=== PATIENT | female | born 1945 | race Caucasian/White ===

== ENCOUNTER 2017-10-26 03:02 | Inpatient (IN) | payer OTHER ==
[~2017-10-26] VITALS: Ht 161.3 cm; Wt 100.7 kg
[~2017-10-26 03:02] MED LIST: AMLODIPINE BES2.5 MG PO; AMLODIPINE BESY10 M1 PO; ATORVASTATIN CA20 M1 PO; ATORVASTATIN CA20 MG PO; BIOTIN1 MG PO; BUFFERIN LOW DO81 MG PO; COQ-10100 MG PO; LISINOPRIL40 M1 PO; LISINOPRIL40 MG PO; METFORMIN HCL500 M3 PO; METFORMIN HCL500 MG PO; METOPROLOL SUC100 M1 PO; TOPROL XL100 M1 PO; VITAMIN D2000 UNI1 PO
[2017-10-26] MEDS ORDERED: VITAMIN B122500 MC1 PO (07:27)
--- NOTE | 2017-10-26 09:41 | Operative Report ---
Operative/Inv Procedure Report Surgery Date: 10/26/17 Name of Procedure: Right total knee arthroplasty Pre-Operative Diagnosis: Primary arthritis right knee Post-Operative Diagnosis: Same Estimated Blood Loss: scant Surgeon/Stunt Woman: Hailey HOANG,Neel TORRES Anesthesia: laryngeal mask airway, block (SPINAL) IV Fluids: See anesthesia record Implants: Nathalie triathlon posterior stabilized knee size 4 femur, size 4 tibia, 11 mm polyethylene insert and a 29 patellar button Drains: None Specimens: Bone to pathology Tourniquet: 55 minutes Complications: None Condition: Stable Operative Indication: Patient 72-year-old female with osteoarthritis the right knee was failed conservative treatment is indicated for right total knee arthroscopy. Risks and benefits the procedure were discussed the patient in detail. Skills that hand is necessary provided by physician salon shampoo assistant Reagan jaimes with limb positioning retraction and component assembly throughout the case. Operative/Procedure Note Note: Once informed consent was obtained and the correct limb was identified the patient brought the operating placed on table supine position. After administration of spinal anesthesia patient had Sawant catheter placed and a thigh tourniquet placed in the right lower examinee was prepped and draped in usual sterile fashion. To begin the procedure standard midline incision made for right total knee arthroplasty. Sharp dissection was carried out through skin and subcu tissue. A medial parapatellar arthrotomy was performed and the patella was everted. Fat pads removed from patellar tendon. Patellar thickness was measured to be 22 mm of plan resection of 8 mm was performed with patellar jig. The patella was sized to be asymmetric 29 patellar button and the jig for the 29 patellar button was placed and the drill holes were made. At this point the patella was retracted laterally and the knee was placed in flexion. Z retractors were placed to protect the collateral ligaments and the intramedullary canal the femur was opened using a step drill. The intramedullary distal femoral cutting guide was placed down the canal. Plan resection of 6 valgus cut with 10 mm resection distally was set and performed without complication. Bone was passed off to pathology. Once this was done the femur sized to be a size 4 femur with the sizing guide. A size 4 4-in-1 cutting guide was placed in the distal femur and anterior posterior and chamfer cuts were made without complication. Bone was passed off. Next the size 4 box cut guide was placed on the femur and the box cut was made for the posterior stabilized knee. At this point the medial and lateral menisci were removed sharply with the Bovie cautery and a #10 blade. At this point we then were ready to position the tibia for preparation we noticed a small nondisplaced fracture of the medial femoral condyle of the cancellus portion of the bone. A 4.0 partially-threaded cannulated screw was then placed to fix the fracture. The screw head was countersunk to avoid any interference of the femoral implant. This allowed for excellent fixation of this small cancellus bone fracture. We then moved onto the tibial portion of the case. The intramedullary canal was entered with a step drill and the tibial cutting guide was placed down the intramedullary canal of the tibia. Plan resection of 4 mm I was placed off of the medial side of the knee. The tibial cutting guide was pinned in place and the cut was made without complication. Bone was passed off as specimen. The tibia was then sized to be a size 4 tibia. Trial reduction was done with a 4 tibia 4 femur and a 9 mm polyethylene insert. The knee had full extension and flexion of 120. The knee was stable to varus and valgus stress at 0 and 60. The patella tracked nicely and the rotation of the component was marked after taking the knee through range of motion. The instruments and components removed and the tibial tray was pinned in place. The keel cut was made. At this point the knee was pulse lavaged and the cement was mixed on the back table. The components were then cemented in place with the tibial component cemented first followed by the femoral component and the patellar button. All excess cement was removed with curettes. A 9 mm polyethylene trial was placed into the knee and the knee is placed in full extension while the cement hardened. At this point we noticed slight hyperextension of the knee. Once the cement hardened we did a trial again and decided to go to an 11 mm polyethylene insert. We again had full extension and no loss of flexion with 120 of flexion. The knee was stable to varus and valgus stress at 0 and 60. The trial component was removed and a 11 mm polyethylene insert was opened and locked into the tibial tray without problems. The knee was pulse lavaged and the tourniquet was released. Bleeding was stopped with electrocautery. The arthrotomy was then closed with # 1 Vicryl interrupted sutures and the subcutaneous tissues closed with #1 Vicryl and 2-0 Vicryl interrupted sutures and the skin was closed juvenal. A sterile dressing was applied the patient was awakened taken recovery in stable condition.
[2017-10-26 11:00] VITALS: BP 122/60
--- NOTE | 2017-10-26 11:19 | Cons- Medical ---
Guy Mace 10/26/17 1118: General Information and HPI Consulting Request Date of Consult: 10/26/17 Requested By: Hailey HOANG,Neel Lopez History of Present Illness: This is a 72-year-old female with past medical history of hypertension, hyperlipidemia and diabetes mellitus on amlodipine, aspirin, statin, lisinopril and metformin along with metoprolol was admitted today on 10/26/2017 for right total knee arthroplasty for primary arthritis of the right knee.She is now status post right total knee arthroplasty. We have been consulted for medical management of her hypertension, hyperlipidemia and diabetes mellitus.she doesnot offer any medical complaints at this point and is doing good. Allergies/Medications Allergies: Coded Allergies: Sulfa (Sulfonamide Antibiotics) (Intermediate, RASH 10/25/17) Home Med List: Amlodipine Besylate 10 MG TABLET 1 TAB PO DAILY HTN (Reported) Atorvastatin Calcium 20 MG TABLET 1 TAB PO DAILY CHOLESTEROL (Reported) Biotin 1 MG CAPSULE SUPPLEMENT (Reported) Cholecalciferol (Vitamin D3) (Vitamin D) 2,000 UNIT TABLET 1 TAB PO DAILY SUPPLEMENT (Reported) Cyanocobalamin (Vitamin B-12) (Vitamin B12) (Unknown Strength) TABLET (Unknown Dose) ONCE VITAMIN SUPPORT (Reported) Lisinopril 40 MG TABLET 1 TAB PO DAILY HTN (Reported) Metformin HCl 500 MG TABLET 1 TAB PO BID DM (Reported) Metoprolol Succ XL (Toprol XL) 100 MG TAB.ER.24H 1 TAB PO DAILY HTN (Reported ) Ubidecarenone (Coq-10) 100 MG CAPSULE SUPPLEMENT (Reported) Review of Systems Review of Systems Constitutional: Reports: see HPI. Past History Medical History Neurological: NONE EENT: NONE Cardiovascular: hypertension, hyperlipidemia Respiratory: NONE Gastrointestinal: GERD Hepatic: NONE Renal: NONE Musculoskeletal: NONE Psychiatric: NONE Endocrine: diabetes Blood Disorders: NONE Cancer(s): UTERINE CA TELECOMMUNICATOR/Reproductive: NONE Surgical History Surgical History: hysterectomy Family History Relations & Conditions If Any: MOTHER FH: bladder cancer aunt Colorectal cancer uncle Colorectal cancer Psychosocial History Who Do You Live With? spouse Services at Home: None Primary Language: Mongolian Smoking Status: Unknown If Ever Smoked Functional Ability ADLs Independent: dressing, eating, toileting, bathing. Ambulation: independent IADLs Independent: shopping, housework, finances, food prep, telephone, transportation , medication admin. Exam & Diagnostic Data Last 24 Hrs of Vital Signs/I&O Vital Signs Date Time Temp Pulse Resp B/P B/P Pulse O2 O2 Flow FiO2 Mean Ox Delivery Rate 10/26 1100 97.9 66 20 122/60 97 Room Air Physical Exam General Appearance: well developed/nourished, no apparent distress, alert, awake Head: atraumatic, normal appearance Neck: normal inspection, supple Respiratory: normal breath sounds, chest non-tender Cardiovascular: regular rate/rhythm Gastrointestinal: normal bowel sounds, soft, non-tender Last 24 Hrs of Labs/Richi: .. Assessment/Plan Assessment/Plan This is a 72-year-old female with past medical history of hypertension, hyperlipidemia and diabetes mellitus on amlodipine, aspirin, statin, lisinopril and metformin along with metoprolol was admitted today on 10/26/2017 for right total knee arthroplasty for primary arthritis of the right knee.She is now status post right total knee arthroplasty. We have been consulted for medical management of her hypertension, hyperlipidemia and diabetes mellitus. He is afebrile with temperature 97.9, pulse of 66, respirations 20, blood pressure 122/60, she saturating 97% on room air. No labs were done today morning. [facility] labs today as baseline creatinine 1.2 Last echo was in 2014 with a normal EF of 60% with impaired left ventricular relaxation, mild septal hypertrophy, moderate left atrial enlargement, trace MR and mild TR. She was admitted to orthopedic service medical team has been consulted for management of medical issues namely hypertension, hyperlipidemia, diabetes mellitus. Problem #1 hypertension. Patient's blood pressure is stable currently. Continue amlodipine 10 mg daily. As the blood pressure is within normal range, I would start amlodipine 10 mg first, check the blood pressure and then gradually restart lisinopril 40 mg daily. Subsequently can restart metoprolol 100 mg daily. Continue to monitor blood pressure. 2. Diabetes mellitus. Continue to monitor fingersticks. Hold metformin while inpatient. NovoLog sliding scale. 3. Hyperlipidemia. Continue atorvastatin 20 mg daily. AC per ortho Thank you for consulting the medical team, please contact us if any questions and we will be following along with you. Copies To: Hailey HOANG,Neel Lopez Consult Acknowledgment - Thank you for your consult request. Himanshu Schmidt 10/26/17 1437: Assessment/Plan Consult Acknowledgment - Thank you for your consult request. Attending MD Review Statement Attending Statement Attending MD Statement: examined this patient, discuss w/resident/PA/LISW, agreed w/resident/PA/LISW, reviewed EMR data (avail) Attending Assessment/Plan: HTN- cont on current home meds - on norvasc, metoprolol and lisinopril. will recheck BEP. HLD- cont on lipitor DVT proh- on eliquis per ortho d/w pt the care plan.
[2017-10-26 13:11] VITALS: BP 134/68
--- NOTE | 2017-10-26 13:15 | PN- Orthopedic ---
Subjective Subjective: Complaints after surgery, she is recovering well, no significant pain, no fever no flulike illness, recovering from anesthesia without complications Objective Vital Signs and I&Os Vital Signs Date Time Temp Pulse Resp B/P B/P Pulse O2 O2 Flow FiO2 Mean Ox Delivery Rate 10/26 1100 97.9 66 20 122/60 97 Room Air Intake & Output 10/26 1600 10/26 0800 10/26 0000 10/25 1600 10/25 0800 10/25 0000 Intake Total Output Total Balance Patient 222 lb Weight Weight Bed scale Measurement Method Physical Exam: Well-developed well-nourished no apparent distress. HEENT: Atraumatic, extraocular motion intact Neck: Supple, no lymphadenopathy Respiratory: No respiratory distress Extremities: No edema RIGHT lower extremity dressing in place, Dressing is clean dry and intact Compression wrap in place. ALPS in place Neurovascularly intact distally Bilateral calves are supple, nontender. Neuro: Alert and oriented x3 Psych: Mood affect normal, normal memory normal judgment. Skin: Warm and dry, no rash on exposed skin Results Last 48 Hours of Labs: Laboratory Tests 10/26 1310 Chemistry Sodium Pending Potassium Pending Chloride Pending Carbon Dioxide Pending Anion Gap Pending BUN Pending Creatinine Pending BUN/Creatinine Ratio Pending Hematology CBC w Diff Pending WBC Pending RBC Pending Hgb Pending Hct Pending MCV Pending MCH Pending MCHC Pending RDW Pending Plt Count Pending MPV Pending Assessment/Plan Assessment/Plan Postop day #0 status post right total knee arthroplasty. Perioperative antibiotics. Pain medication as needed. Out of bed Physical therapy, weightbearing as tolerated Continue Sawant catheter until tomorrow IV fluids Regular diet Appreciate medicine consult Follow up this afternoon and tomorrow morning labs Eliquis for DVT prophylaxis starting tomorrow am ALPS for DVT prophylaxis Regular home meds Dressing change postop day 2 Core Measures Venous Thromboembolism VTE Risk Factors Age>40 No Mechanical VTE Prophylaxis d/t N/A MechProphylax Ordered No VTE Pharm Prophylaxis d/t NA PharmProphylax ordered
[2017-10-26] MEDS ORDERED: PERCOCET 5-3251 EACH PO (13:37)
[2017-10-26] MEDS ORDERED: ELIQUIS2.5 M1 PO (13:37)
[2017-10-26] MEDS ORDERED: SENNA PLUS TAB1 EACH PO (13:37)
--- NOTE | 2017-10-26 13:37 | Surgical Discharge Summary ---
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 Home Who Do You Live With? Spouse Services at Home: None What is Your Primary Language? Kyrgyz Review of Systems: yes Hospital Course Course Attending Physician: Neel Gardienr MD Primary Care Physician: Jl Peng MD Hospital Course: Patient underwent a right total knee arthroplasty by Dr. gardiner which went without complications. Postoperatively the patient did well. Pain was well controlled, vital signs are stable, limited stable, she voided spontaneously, her diet was advanced, she received physical therapy, perioperative antibiotics and DVT prophylaxis with Eliquis. She was followed by our medical staff as well. When she was medically stable and cleared physical therapy she was discharged home in stable condition having tolerated procedure well without complications. Complications: None Allergies: Coded Allergies: Sulfa (Sulfonamide Antibiotics) (Intermediate, RASH 10/25/17) Disposition Summary Disposition Principal Diagnosis: Right knee osteoarthritis status post right total knee arthroplasty Additional Diagnosis: Same Discharge Disposition: home health services Discharge Instructions General Discharge Information Code Status: Full Code Patient's Diet: Diabetic diet Patient's Activity: Per total knee arthroplasty protocol. Weightbearing as Tolerated, range of motion as tolerated Follow-Up Instructions/Appts: Continue Eliquis for 1 month. Pain medication as needed. Pioneer out in 2 weeks by visiting nurse or with at follow-up appointment Medications at Discharge Discharge Medications: Continue taking these medications: Atorvastatin Calcium (Atorvastatin Calcium) 20 MG TABLET 1 Tablet ORAL DAILY Comments: Last Taken: 10/27/17 Time: 1600PM Amlodipine Besylate (Amlodipine Besylate) 10 MG TABLET 1 Tablet ORAL DAILY Comments: Last Taken: 10/28/17 Time: 1000AM Lisinopril (Lisinopril) 40 MG TABLET 1 Tablet ORAL DAILY Comments: Last Taken: 10/28/17 Time: 1000AM Metformin HCl (Metformin HCl) 500 MG TABLET 1 Tablet ORAL TWICE DAILY Comments: NOT GIVEN IN HOSPITAL Metoprolol Succ XL (Toprol XL) 100 MG TAB.ER.24H 1 Tablet ORAL DAILY Comments: Last Taken: 10/28/17 Time: 1000AM Cholecalciferol (Vitamin D3) (Vitamin D) 2,000 UNIT TABLET 1 Tablet ORAL DAILY Comments: NOT GIVEN IN HOSPITAL Ubidecarenone (Coq-10) 100 MG CAPSULE 1 Tablet ORAL DAILY Comments: NOT GIVEN IN HOSPITAL Biotin (Biotin) 1 MG CAPSULE 1 Tablet ORAL DAILY Comments: NOT GIVEN IN HOSPITAL Cyanocobalamin (Vitamin B-12) (Vitamin B12) (Unknown Strength) TABLET 1 Tablet ORAL GIVE ONCE Comments: NOT GIVEN IN HOSPITAL Start taking the following new medications: Apixaban (Eliquis) 2.5 MG TABLET 2.5 Milligram ORAL TWICE DAILY as needed for blood clot risk reduction Qty = 60 No Refills Comments: Last Taken: 10/28/17 Time: 1000AM Docusate Sodium (Docusate Sodium) 100 MG CAPSULE 100 Milligram ORAL TWICE DAILY as needed for CONSTIPATION Qty = 60 No Refills Instructions: stool softener. hold for loose bms. Comments: Last Taken: 10/28/17 Time: 1000AM Oxycodone HCl/Acetaminophen (Percocet 5-325 MG Tablet) 5 MG-325 MG TABLET 1-2 Tablet ORAL EVERY 4-6 HOURS NEEDED as needed for pain control Qty = 36 No Refills Instructions: tylenol alternatively. do not combine. Comments: PERCOCET 1 TAB GIVEN 10/28/17 @1000AM Polyethylene Glycol 3350 (Miralax) 17 GRAM POWD.PACK 1 Packet ORAL DAILY as needed for CONSTIPATION Qty = 2 No Refills Instructions: dissolve in water Comments: Last Taken: 10/28/17 Time: 1000AM
--- NOTE | 2017-10-26 13:41 | Patient Discharge Instructions ---
Discharge Instructions General Discharge Information You were seen/treated for: Right knee osteoarthritis You had these procedures: Right total knee arthroplasty Watch for these problems: Fever greater than 101, flulike illness, redness, drainage from the wound, severe pain and inability to bend knee, inability to weight-bear No bath, but you may shower: Yes Other wound care: Dry dressing or Band-Aid daily. Do not submerge the wound. Special Instructions: Range of motion as tolerated, activity as tolerated, activity per physical therapy Take pain medication as needed. Take Eliquis for DVT prophylaxis blood thinner (do not take any additional Motrin and Advil Aleve or aspirin with this medication) Diet Recommended Diet: Diabetic Activity Full Activity/No Limits: No Activity Self Limited: Yes Acute Coronary Syndrome Inclusion Criteria At DC or during hospital stay patient has or had the following: ACS DIAGNOSIS No Discharge Core Measures Meds if any: Prescribed or Continued at Discharge Meds if any: NOT Prescribed or Continued at Discharge Congestive Heart Failure Inclusion Criteria At DC or during hospital stay patient has or had the following: CHF DIAGNOSIS No Discharge Core Measures Meds if any: Prescribed or Continued at Discharge Meds if any: NOT Prescribed or Continued at Discharge Cerebrovascular accident Inclusion Criteria At DC or during hospital stay patient has or had the following: CVA/TIA Diagnosis No Discharge Core Measures Meds if any: Prescribed or Continued at Discharge Meds if any: NOT Prescribed or Continued at Discharge Venous thromboembolism Inclusion Criteria VTE Diagnosis No VTE Type NONE VTE Confirmed by (Test) NONE Discharge Core Measures - Per Current guidelines, there needs to be overlap - treatment for the first 5 days of Warfarin therapy. - If discharged on Warfarin prior to 5 days of - overlap therapy, the patient will need to be - assessed for post discharge needs including - *Post discharge parental anticoagulation - *Warfarin and/or parental anticoagulation education - *Follow up date to check INR post discharge At least 5 days overlap therapy as Inpatient No Meds if any: Prescribed or Continued at Discharge Note: Overlap Therapy is Warfarin and Anticoagulant Meds if any: NOT Prescribed or Continued at Discharge
[2017-10-26 14:31] LABS: ABSOLUTE BASOPHIL COUNT 0 /CUMM (0.0-0.2); ABSOLUTE EOSINOPHIL COUNT 0 /CUMM (0.0-0.7); ABSOLUTE GRANULOCYTE CT 10.2 /CUMM (1.4-6.5); ABSOLUTE LYMPH COUNT 0.7 /CUMM (1.2-3.4); ABSOLUTE MONOCYTE COUNT 0.2 /CUMM (0.10-0.60); BASOPHIL % 0 % (0.0-2.0); EOSINOPHIL % 0.1 % (0-5); HEMATOCRIT 36.5 % (37-47); MEAN CORPUSCULAR HGB 29.6 PG (27.0-31.0); MEAN CORPUSCULAR HGB CONC 33.8 G/DL (33.0-37.0); MEAN CORPUSCULAR VOLUME 87.6 FL (81.0-99.0); PLATELET COUNT 221 /CUMM (130-400); RBC DISTRIBUTION WIDTH 13.2 % (11.5-14.5); RED BLOOD CELL CT 4.16 /CUMM (4.20-5.40); WHITE BLOOD CELL COUNT 11.1 /CUMM (4.8-10.8)
[2017-10-26 14:51] VITALS: BP 130/66
[2017-10-26 14:59] LABS: GRANULOCYTE % 91.8 % (42.2-75.2)
[2017-10-26 16:52] VITALS: BP 124/72
[2017-10-26 22:11] VITALS: BP 142/78
[2017-10-27 01:12] VITALS: BP 146/76
[2017-10-27 05:09] VITALS: BP 141/66
[2017-10-27 07:34] LABS: ABSOLUTE BASOPHIL COUNT 0 /CUMM (0.0-0.2); ABSOLUTE EOSINOPHIL COUNT 0 /CUMM (0.0-0.7); ABSOLUTE GRANULOCYTE CT 12.2 /CUMM (1.4-6.5); ABSOLUTE LYMPH COUNT 0.6 /CUMM (1.2-3.4); ABSOLUTE MONOCYTE COUNT 1.2 /CUMM (0.10-0.60); BASOPHIL % 0 % (0.0-2.0); EOSINOPHIL % 0 % (0-5); HEMATOCRIT 32.4 % (37-47); MEAN CORPUSCULAR HGB 30.2 PG (27.0-31.0); MEAN CORPUSCULAR HGB CONC 34.4 G/DL (33.0-37.0); MEAN CORPUSCULAR VOLUME 87.8 FL (81.0-99.0); MEAN PLATELET VOLUME 7.9 FL (7.4-10.4); PLATELET COUNT 211 /CUMM (130-400); RBC DISTRIBUTION WIDTH 12.7 % (11.5-14.5); RED BLOOD CELL CT 3.69 /CUMM (4.20-5.40)
--- NOTE | 2017-10-27 08:07 | PN- Medicine Consult ---
See Addendum Guy Mace 10/27/17 0806: Assessment/PlanMedical Consult Assessment/Plan Assessment: BP sysotlic in 140's, a little anxious and in pain this morning. low grade 99.6 temp, creatinine back to normal, eating well and tolerating food fine after the procedure. FS > 200 noted no new complaints Plan: This is a 72-year-old female with past medical history of hypertension, hyperlipidemia and diabetes mellitus on amlodipine, aspirin, statin, lisinopril and metformin along with metoprolol was admitted today on 10/26/2017 for right total knee arthroplasty for primary arthritis of the right knee.She is now status post right total knee arthroplasty. We have been consulted for medical management of her hypertension, hyperlipidemia and diabetes mellitus. 1 hypertension. Patient's blood pressure is close to 140 systolic Continue all home BP medications today. BP should be better after she gets all her BP meds today ct to monitor. 2. Diabetes mellitus. Continue to monitor fingersticks. FS noted to be >200, please add bedtime s/s as well. ct to Hold metformin while inpatient, resume on d/c. NovoLog sliding scale - increase to medium dose 3. Hyperlipidemia. Continue atorvastatin 20 mg daily. 4. Mild ESDRAS -prerenal now resolved. -generous hydratino by mouth 5. Pain control -she looks very anxious and says thathe knee pain is 8/10 this morning and after percocet is still 5/10 -She does look in pain -Suggest optimizing pain regimen, while coverign with laxatives in constipated for fe intial days then can taper down the regimen. AC per ortho Thank you for consulting the medical team. Problem List: 1. Total knee replacement status Subjective Subjective: i have seen and examined the patient today morning, she is little anxious this morning and says that she thought her pain would go away, but its been botherign her all night and was 8/10 this morning. Review of Systems Constitutional: Reports: see HPI. Objective Last 24 Hrs of Vital Signs/I&O Vital Signs Date Time Temp Pulse Resp B/P B/P Pulse O2 O2 Flow FiO2 Mean Ox Delivery Rate 10/27 0509 99.6 76 20 141/66 90 Room Air 10/27 0130 93.2 10/27 0112 98.7 80 20 146/76 92 Room Air 10/26 2211 98.2 77 20 142/78 92 Room Air 10/26 1652 97.5 67 18 124/72 92 Room Air 10/26 1451 97.3 67 20 130/66 94 Room Air 10/26 1311 97.5 68 20 134/68 94 Room Air 10/26 1100 97.9 66 20 122/60 97 Room Air Intake & Output 10/27 1600 10/27 0800 10/27 0000 Intake Total 760 Output Total 1500 Balance -740 Intake, IV 460 Intake, Oral 300 Number 0 Bowel Movements Output, Urine 1500 Physical Exam General Appearance: no apparent distress, alert, awake Cardiovascular: regular rate/rhythm Respiratory: normal breath sounds Abdomen: normal bowel sounds, soft, non-tender Extremities: normal inspection Current Medications: Current Medications Sig/Vaibhav Start time Last Medication Dose Route Stop Time Status Admin Acetaminophen 0 .STK-MED ONE 10/26 1018 DC IV Acetaminophen 650 MG ONCE 10/26 0000 DC PO 10/26 2359 Amlodipine Besylate 10 MG DAILY 10/26 0938 AC PO Apixaban 2.5 MG BID 10/27 09 AC PO Atorvastatin Calcium 20 MG 1700 10/26 1700 AC 10/26 PO 1658 Atorvastatin Calcium 20 MG DAILY 10/26 0938 CAN PO Bupivacaine Liposome 266 MG .STK-MED ONE 10/26 0834 DC INF 10/26 0835 Celecoxib 400 MG DAILY 10/27 0900 AC PO Dexamethasone 10 MG ONCE 10/26 0000 DC IV 10/26 2359 Docusate Sodium 100 MG BID 10/27 0900 AC PO Docusate Sodium 100 MG BID PRN 10/26 0945 AC PO 10/27 0859 Gabapentin 300 MG ONCE 10/26 0000 DC PO 10/26 2359 Insulin Aspart 0 TIDAC 10/26 1700 AC 10/26 SC 1658 Lisinopril 40 MG DAILY 10/27 0900 AC PO Metformin HCl 500 MG BID 10/26 2100 CAN PO Metoprolol Succinate 100 MG DAILY 10/27 0900 AC PO Morphine Sulfate 2 MG Q3P PRN 10/26 1100 AC IV Ondansetron HCl 4 MG Q6P PRN 10/26 1100 AC IV Oxycodone HCl 10 MG ONCE 10/26 0000 DC PO 10/26 2359 Oxycodone/ 1 TAB Q4P PRN 10/26 1100 AC 10/27 Acetaminophen PO 0628 Oxycodone/ 2 TAB Q4P PRN 10/26 1100 AC Acetaminophen PO Polyethylene Glycol 17 GM DAILY 10/27 0900 AC PO Polyethylene Glycol 17 GM DAILY PRN 10/26 1000 AC PO 10/27 0859 Scopolamine HBr 1 PAT ONCE 10/26 0000 DC TOP 10/26 2359 Senna/Docusate Sodium 2 TAB AT BEDTIME NEED.. 10/26 1100 AC PO Sodium Chloride 1,000 ML .[id number] 10/26 1100 DC 10/26 IV 2207 Vancomycin HCl 1,500 MG ONCE ONE 10/26 1900 DC 10/26 Sodium Chloride 250 ML IV 10/26 Vancomycin HCl 1,500 MG ONCE 10/26 0000 DC Sodium Chloride 250 ML IV 10/26 235 Results Last 24 Hrs Lab/Richi Results: Laboratory Tests 10/27/17 0600: Anion Gap 8, Estimated GFR > 60, BUN/Creatinine Ratio 20.0, CBC w Diff Pending, WBC Pending, RBC Pending, Hgb Pending, Hct Pending, MCV Pending, MCH Pending, MCHC Pending, RDW Pending, Plt Count Pending, MPV Pending, Gran % Pending, Lymphocytes % Pending, Monocytes % Pending, Eosinophils % Pending, Basophils % Pending, Absolute Granulocytes Pending, Absolute Lymphocytes Pending, Absolute Monocytes Pending, Absolute Eosinophils Pending, Absolute Basophils Pending 10/26/17 1310: Anion Gap 10, Estimated GFR 49 L, BUN/Creatinine Ratio 20.0, CBC w Diff NO MAN DIFF REQ, RBC 4.16 L, MCV 87.6, MCH 29.6, MCHC 33.8, RDW 13.2, MPV 8.0, Gran % 91.8 H, Lymphocytes % 6.6 L, Monocytes % 1.5 L, Eosinophils % 0.1, Basophils % 0, Absolute Granulocytes 10.2 H, Absolute Lymphocytes 0.7 L, Absolute Monocytes 0.2, Absolute Eosinophils 0, Absolute Basophils 0 Microbiology 10/26 814 URINE ROUT: Urine Culture - RECD Carolann Schmidtmartín 10/27/17 1231: Attending MD Review Statement Attending Sign Off Attending Cosign Statement: I have: examined this patient, reviewed avalbl EMR data, discussd w/resident/PA/ DIRECTORY ASSISTANCE OPERATOR, discussed mgmt plan w/bharat, discussed mgmt plan w/pt, agreed w/resident/PA/ DIRECTORY ASSISTANCE OPERATOR. Other Findings: had very low grade fever with mild increase in wbc. monitor closley. likely stress related leukocytosis. pt has no dysuria or other urinary symptoms. dw pt the care plan.
[2017-10-27 08:19] LABS: GRANULOCYTE % 87.1 % (42.2-75.2)
[2017-10-27 09:00] VITALS: BP 138/78
--- NOTE | 2017-10-27 09:29 | PN- Orthopedic ---
Subjective Subjective: No acute overnight events reported. She reports pain, states that we are still working on figuring out the best timing of pain medication doses, but does note periodic relief when meds are administered. Patient states she had some nausea without emesis in the immediate post op period but that has since resolved. Presently tolerating diet. No complaints of chest pain, shortness of breath. Has alcala catheter in place. Has yet to ambulate, is eager to walk with PT this am. Objective Vital Signs and I&Os Vital Signs Date Time Temp Pulse Resp B/P B/P Pulse O2 O2 Flow FiO2 Mean Ox Delivery Rate 10/27 0900 98.5 80 20 138/78 93 Room Air 10/27 0509 99.6 76 20 141/66 90 Room Air 10/27 0112 98.7 80 20 146/76 92 Room Air 10/26 2211 98.2 77 20 142/78 92 Room Air 10/26 1652 97.5 67 18 124/72 92 Room Air 10/26 1451 97.3 67 20 130/66 94 Room Air 10/26 1311 97.5 68 20 134/68 94 Room Air 10/26 1100 97.9 66 20 122/60 97 Room Air Intake & Output 10/27 1600 /16 0800 08/16 0000 08/15 1600 10/26 0800 0815 0000 Intake Total 760 780 Output Total 1500 450 Balance -740 330 Intake, IV 460 300 Intake, Oral 300 480 Number 0 0 Bowel Movements Output, Urine 1500 450 Patient 222 lb Weight Weight Bed scale Measurement Method Physical Exam: General: Alert and oriented x3, no acute distress Cardiac: RRR, s1s2 Pulm: CTA bilaterally, nonlabored respiratory effort Abd: non-tender, non-distended Extremties: Moves all extremities, distal sensation grossly itnact. Skin warm and well perfused. Full extension to right knee, no varus or valgus deformity, dressing dry and intact. Bialteral calves soft and non-tender. Assessment/Plan Assessment/Plan This is a 72 year old female, POD 1, s/p R TKR -DC iv fluids, dc alcala catheter -Eliquis 2.5 bid for dvt ppx -Activity: OOB, wbat -bowel regimen to include colace and miralax -pain regimen to include percocet -blood cultures ordered per medicine for leukocytosis, follow up -incentive spirometry and ambulation encouraged will discuss plan of care with Dr. Hart Core Measures Venous Thromboembolism VTE Risk Factors Age>40 No Mechanical VTE Prophylaxis d/t N/A MechProphylax Ordered No VTE Pharm Prophylaxis d/t NA PharmProphylax ordered
[2017-10-27 14:26] VITALS: BP 110/60
[2017-10-27 22:10] VITALS: BP 132/61
[2017-10-28 07:00] VITALS: BP 138/72
--- NOTE | 2017-10-28 07:42 | PN- Orthopedic ---
See Addendum Subjective Subjective: Reports pain controlled with percocet. Doing well with PT. No dizziness. No shortness of breath. No chest pains. Tolerating diet. No nausea/vomiting. No bm yet. Voiding well. Anticipates discharge to home tomorrow. Objective Vital Signs and I&Os Vital Signs Date Time Temp Pulse Resp B/P B/P Pulse O2 O2 Flow FiO2 Mean Ox Delivery Rate 10/27 2210 98.2 75 18 132/61 95 Room Air 10/27 1426 98.4 79 18 110/60 93 Room Air 10/27 09 98.5 80 20 138/78 93 Room Air Intake & Output 10/28 0800 10/28 0000 10/27 1600 10/27 0810/27 0000 10/26 1600 Intake Total 465 031 6307 340 760 780 Output Total 300 200 833 250 8636 450 Balance -50 0 535 -310 -740 330 Intake, IV 10 85 100 460 300 Intake, Oral 631 869 2270 240 300 480 Number 0 0 0 Bowel Movements Output, Urine 300 200 762 947 7409 450 Patient 222 lb Weight Weight Bed scale Measurement Method Physical Exam: General - alert & oriented x 3. comfortable. no acute distress. Lungs - clear bilaterally. no w/r/r. Cardiac - s1s2. reg. Abdomen - soft. nontender. Extremities - warm bilaterally. dressing removed. incision well approximated with juvenal. no erythema or exudates. calves soft and nontender b/l. nvi. Current Medications: Current Medications Sig/Vaibhav Start time Last Medication Dose Route Stop Time Status Admin Amlodipine Besylate 10 MG DAILY 10/26 09 AC 10/27 PO 09 Apixaban 2.5 MG BID 10/27 899 AC 10/27 PO 2222 Atorvastatin Calcium 20 MG 1700 10/26 1700 AC 10/27 PO 1635 Celecoxib 400 MG DAILY 10/27 09 AC 10/27 PO 0908 Docusate Sodium 100 MG BID 10/27 09 AC 10/27 PO 2222 Docusate Sodium 100 MG BID PRN 10/26 0945 DC PO 10/27 0859 Insulin Aspart 0 AT BEDTIME 10/27 2100 AC SC Insulin Aspart 0 TIDAC 10/26 1700 AC 10/27 SC 182 Lisinopril 40 MG DAILY 10/27 09 AC 10/27 PO 0908 Metoprolol Succinate 100 MG DAILY 10/27 0900 AC 10/27 PO 0909 Morphine Sulfate 2 MG Q3P PRN 10/26 1100 AC IV Ondansetron HCl 4 MG Q6P PRN 10/26 1100 AC IV Oxycodone/ 1 TAB Q4P PRN 10/26 1100 AC 10/28 Acetaminophen PO 0017 Oxycodone/ 2 TAB Q4P PRN 10/26 1100 AC 10/28 Acetaminophen PO 0605 Patient Medication 1 ED ONE ONE 10/27 1645 DC Teaching ED 10/27 1646 Polyethylene Glycol 17 GM DAILY 10/27 0900 AC PO Polyethylene Glycol 17 GM DAILY PRN 10/26 1000 DC PO 10/27 0859 Senna/Docusate Sodium 2 TAB AT BEDTIME NEED.. 10/26 1100 AC PO Results Last 48 Hours of Labs: Laboratory Tests 10/28 10/27 0614 0600 Chemistry Sodium (137 - 145 mmol/L) Pending 136 L Potassium (3.5 - 5.1 mmol/L) Pending 4.6 Chloride (98 - 107 mmol/L) Pending 108 H Carbon Dioxide (22 - 30 mmol/L) Pending 21 L Anion Gap (5 - 16) Pending 8 BUN (7 - 17 mg/dL) Pending 18 H Creatinine (0.5 - 1.0 mg/dL) Pending 0.9 Estimated GFR (>60 ml/min) > 60 BUN/Creatinine Ratio (7 - 25 %) Pending 20.0 Hematology CBC w Diff Pending NO MAN DIFF REQ WBC (4.8 - 10.8 /CUMM) Pending 14.0 H RBC (4.20 - 5.40 /CUMM) Pending 3.69 L Hgb (12.0 - 16.0 G/DL) Pending 11.1 L Hct (37 - 47 %) Pending 32.4 L MCV (81.0 - 99.0 FL) Pending 87.8 MCH (27.0 - 31.0 PG) Pending 30.2 MCHC (33.0 - 37.0 G/DL) Pending 34.4 RDW (11.5 - 14.5 %) Pending 12.7 Plt Count (130 - 400 /CUMM) Pending 211 MPV (7.4 - 10.4 FL) Pending 7.9 Gran % (42.2 - 75.2 %) 87.1 H Lymphocytes % (20.5 - 51.1 %) 4.5 L Monocytes % (1.7 - 9.3 %) 8.4 Eosinophils % (0 - 5 %) 0 Basophils % (0.0 - 2.0 %) 0 Absolute Granulocytes (1.4 - 6.5 /CUMM) 12.2 H Absolute Lymphocytes (1.2 - 3.4 /CUMM) 0.6 L Absolute Monocytes (0.10 - 0.60 /CUMM) 1.2 H Absolute Eosinophils (0.0 - 0.7 /CUMM) 0 Absolute Basophils (0.0 - 0.2 /CUMM) 0 08/15 1310 Chemistry Sodium (137 - 145 mmol/L) 137 Potassium (3.5 - 5.1 mmol/L) 4.6 Chloride (98 - 107 mmol/L) 106 Carbon Dioxide (22 - 30 mmol/L) 21 L Anion Gap (5 - 16) 10 BUN (7 - 17 mg/dL) 22 H Creatinine (0.5 - 1.0 mg/dL) 1.1 H Estimated GFR (>60 ml/min) 49 L BUN/Creatinine Ratio (7 - 25 %) 20.0 Hematology CBC w Diff NO MAN DIFF REQ WBC (4.8 - 10.8 /CUMM) 11.1 H RBC (4.20 - 5.40 /CUMM) 4.16 L Hgb (12.0 - 16.0 G/DL) 12.3 Hct (37 - 47 %) 36.5 L MCV (81.0 - 99.0 FL) 87.6 MCH (27.0 - 31.0 PG) 29.6 MCHC (33.0 - 37.0 G/DL) 33.8 RDW (11.5 - 14.5 %) 13.2 Plt Count (130 - 400 /CUMM) 221 MPV (7.4 - 10.4 FL) 8.0 Gran % (42.2 - 75.2 %) 91.8 H Lymphocytes % (20.5 - 51.1 %) 6.6 L Monocytes % (1.7 - 9.3 %) 1.5 L Eosinophils % (0 - 5 %) 0.1 Basophils % (0.0 - 2.0 %) 0 Absolute Granulocytes (1.4 - 6.5 /CUMM) 10.2 H Absolute Lymphocytes (1.2 - 3.4 /CUMM) 0.7 L Absolute Monocytes (0.10 - 0.60 /CUMM) 0.2 Absolute Eosinophils (0.0 - 0.7 /CUMM) 0 Absolute Basophils (0.0 - 0.2 /CUMM) 0 Assessment/Plan Assessment/Plan This 72 year old female with pmh of htn, hld, and dm, is POD#2 s/p right total knee arthroplasty for primary arthritis right knee, mild ESDRAS now resolved s/p iv fluids tolerating diet pain controlled with percocet dressing changed continue eliquis - dvt ppx colace BID. dulcolax LA or miralax prn added continue PT continue home meds. may consider restarting metformin accuchecks / ss coverage f/u labs d/c planning. she anticipates discharge to home tomorrow f/u medical consult recommendations will d/w Core Measures Venous Thromboembolism VTE Risk Factors Age>40 No Mechanical VTE Prophylaxis d/t N/A MechProphylax Ordered No VTE Pharm Prophylaxis d/t NA PharmProphylax ordered
[2017-10-28] MEDS ORDERED: PERCOCET 5-3251 EACH PO (07:53)
[2017-10-28] MEDS ORDERED: MIRALAX17 G1 PO (07:53)
[2017-10-28] MEDS ORDERED: ELIQUIS2.5 M1 PO (07:53)
[2017-10-28] MEDS ORDERED: DOCUSATE SODIU100 M3 PO (07:53)
[2017-10-28 07:58] LABS: ABSOLUTE BASOPHIL COUNT 0 /CUMM (0.0-0.2); ABSOLUTE EOSINOPHIL COUNT 0 /CUMM (0.0-0.7); ABSOLUTE GRANULOCYTE CT 8.8 /CUMM (1.4-6.5); ABSOLUTE LYMPH COUNT 1.7 /CUMM (1.2-3.4); ABSOLUTE MONOCYTE COUNT 1.5 /CUMM (0.10-0.60); BASOPHIL % 0.1 % (0.0-2.0); EOSINOPHIL % 0.2 % (0-5); GRANULOCYTE % 73.2 % (42.2-75.2); HEMATOCRIT 31.5 % (37-47); MEAN CORPUSCULAR VOLUME 88.2 FL (81.0-99.0); MEAN PLATELET VOLUME 7.8 FL (7.4-10.4); PLATELET COUNT 235 /CUMM (130-400); RBC DISTRIBUTION WIDTH 13.2 % (11.5-14.5); RED BLOOD CELL CT 3.57 /CUMM (4.20-5.40); WHITE BLOOD CELL COUNT 12.1 /CUMM (4.8-10.8)
--- NOTE | 2017-10-28 12:29 | PN- Medicine Consult ---
Guy Mace 10/28/17 1229: Assessment/PlanMedical Consult Assessment/Plan Assessment: vin santos, dmitriy;e, no new complaints, pain improved. Plan: This is a 72-year-old female with past medical history of hypertension, hyperlipidemia and diabetes mellitus on amlodipine, aspirin, statin, lisinopril and metformin along with metoprolol was admitted today on 10/26/2017 for right total knee arthroplasty for primary arthritis of the right knee.She is now status post right total knee arthroplasty. We have been consulted for medical management of her hypertension, hyperlipidemia and diabetes mellitus. 1 hypertension. Patient's blood pressure is close to 140 systolic Continue all home BP medications today. stable 2. Diabetes mellitus. ct current regmien 3. Hyperlipidemia. Continue atorvastatin 20 mg daily. 4. Mild ESDRAS -resovled 5. Pain control -pain better now AC per ortho Thank you for consulting the medical team. we will sing off at this point, if needed please reconsult us. Subjective Subjective: feeling much better. Review of Systems Constitutional: Reports: see HPI. Objective Last 24 Hrs of Vital Signs/I&O Vital Signs Date Time Temp Pulse Resp B/P B/P Pulse O2 O2 Flow FiO2 Mean Ox Delivery Rate 10/28 1011 78 132/80 10/28 0700 98.4 81 20 138/72 92 Room Air 10/27 2210 98.2 75 18 132/61 95 Room Air 10/27 1426 98.4 79 18 110/60 93 Room Air Intake & Output 10/28 1600 10/28 0800 10/28 0000 Intake Total 250 200 Output Total 200 300 200 Balance -200 -50 0 Intake, IV 10 Intake, Oral 240 200 Output, Urine 200 300 200 Current Medications: Current Medications Sig/Vaibhav Start time Last Medication Dose Route Stop Time Status Admin Amlodipine Besylate 10 MG DAILY 10/26 0938 AC 10/28 PO 1011 Apixaban 2.5 MG BID 10/27 09 AC 10/28 PO 1010 Atorvastatin Calcium 20 MG 1700 10/26 1700 AC 10/27 PO 1635 Bisacodyl 10 MG DAILY PRN 10/[address] Celecoxib 400 MG DAILY 10/27 09 AC 10/28 PO 1010 Docusate Sodium 100 MG BID 10/27 09 AC 10/28 PO 1011 Insulin Aspart 0 AT BEDTIME 10/27 2100 AC SC Insulin Aspart 0 TIDAC 10/26 1700 AC 10/27 SC 1822 Lisinopril 40 MG DAILY 10/27 0900 AC 10/28 PO 1011 Metoprolol Succinate 100 MG DAILY 10/27 09 AC 10/28 PO 1011 Morphine Sulfate 2 MG Q3P PRN 10/26 1100 AC IV Ondansetron HCl 4 MG Q6P PRN 10/26 1100 AC IV Oxycodone/ 1 TAB Q4P PRN 10/26 1100 AC 10/28 Acetaminophen PO 1010 Oxycodone/ 2 TAB Q4P PRN 10/26 1100 AC 10/28 Acetaminophen PO 0605 Patient Medication 1 ED ONE ONE 10/27 1645 DC Teaching ED 10/27 1646 Polyethylene Glycol 17 GM DAILY 10/27 09 AC 10/28 PO 1010 Senna/Docusate Sodium 2 TAB AT BEDTIME NEED.. 10/26 1100 AC PO Results Last 24 Hrs Lab/Richi Results: Laboratory Tests 10/28/17 0614: Anion Gap 10, Estimated GFR 54 L, BUN/Creatinine Ratio 21.0, CBC w Diff NO MAN DIFF REQ, RBC 3.57 L, MCV 88.2, MCH 30.0, MCHC 34.0, RDW 13.2, MPV 7.8, Gran % 73.2, Lymphocytes % 13.8 L, Monocytes % 12.7 H, Eosinophils % 0.2, Basophils % 0.1, Absolute Granulocytes 8.8 H, Absolute Lymphocytes 1.7, Absolute Monocytes 1.5 H, Absolute Eosinophils 0, Absolute Basophils 0 Microbiology 10/27 1320 BLOOD: Blood Culture - RES Himanshu Schmidt 10/28/17 1247: Attending MD Review Statement Attending Sign Off Attending Cosign Statement: I have: examined this patient, reviewed avalbl EMR data, discussd w/resident/PA/ MARKETING DATABASE COORDINATOR, discussed mgmt plan w/bharat, discussed mgmt plan w/pt, agreed w/resident/PA/ MARKETING DATABASE COORDINATOR. Other Findings: Pt stable from medical standpoint, no fevers or wbc resolving off abx. blood culture negative so far. will sign off. please reconsult as needed .
--- NOTE | 2017-10-28 12:40 | RADIOLOGY REPORT ---
EXAMINATION: XR KNEE, RIGHT CLINICAL INFORMATION: Right total knee arthroplasty. COMPARISON: None TECHNIQUE: Two views of the right knee. FINDINGS: Total knee arthroplasty performed. The components are well aligned with no periprosthetic fracture or evidence of failure. The screw in the medial condyle chest passes through the cortex by 1-2 mm. Expected postoperative changes in the periarticular soft tissues. IMPRESSION: Appropriate alignment of the right total knee arthroplasty.
[2017-10-28 14:17] VITALS: BP 119/63
== END 2017-10-28 16:30 | disposition home health service (06) | DRG 470 ==
LOC: SDA 03:02 → 2NB 03:02 → SDA 07:00 → ENRESERV 10:12 → ENTRNSPT 10:43 → EDTRNSPTSTS 10:50 → EDTRNSPT 10:50 → 2NB 10:56 → CMPTRNSPT 11:08 → 2NB 10-28 16:30
PROVIDERS: Internal Medicine; Nurse Practitioner; Physician Assistant Surgical
PROC: 0SRC069 Replacement of Right Knee Joint with Oxidized Zirconium on Polyethylene Synthetic Substitute, Cemented, Open Approach (ICD-10-PCS; principal; 2017-10-26)
DX: M17.11 Unilateral primary osteoarthritis, right knee (principal); I10 Essential (primary) hypertension; E78.5 Hyperlipidemia, unspecified; K21.9 Gastro-esophageal reflux disease without esophagitis; E11.9 Type 2 diabetes mellitus without complications; Z79.84 Long term (current) use of oral hypoglycemic drugs; Z85.42 Personal history of malignant neoplasm of other parts of uterus; K76.0 Fatty (change of) liver, not elsewhere classified; Z90.710 Acquired absence of both cervix and uterus; Z88.2 Allergy status to sulfonamides
CPT/HCPCS: 2NBSP; 36415; 36592; 73560-RT; 82436; 87040; 87086; 97110-GO; 97116-GO; 97161-GP; 97530-GO; C1713; C9290; J0131; J1100; J2405; J3370; J7040; J7508